=== PATIENT | female | born 1985 | race Caucasian/White ===

== ENCOUNTER 2019-05-30 19:34 | Emergency (ER) | payer OTHER ==
[~2019-05-30] VITALS: Ht 165.1 cm; Wt 104.3 kg
[~2019-05-30 19:34] MED LIST: ADDERALL5 MG PO; AMBIEN10 M1 PO; CIPROFLOXACIN500 MG PO; Copaxone 20M20 MG/ML IM; DARVOCET N 1001 TAB PO; DAYPRO600 M1 PO; FLAGYL500 MG PO; MIRENA52 MG; ROBAXIN750 MG PO
[2019-05-30 19:35] VITALS: BP 120/70
[2019-05-30] MEDS ORDERED: DIFLUCAN150 MG PO (20:00)
[2019-05-30] MEDS ORDERED: VIBRAMYCIN100 MG PO (20:00)
== END 2019-05-30 20:04 | disposition home or self-care (01) ==
LOC: ED 19:34
DX: S91.115A Laceration without foreign body of left lesser toe(s) without damage to nail, initial encounter (principal); L08.9 Local infection of the skin and subcutaneous tissue, unspecified; F17.200 Nicotine dependence, unspecified, uncomplicated; Z88.6 Allergy status to analgesic agent; Z88.8 Allergy status to other drugs, medicaments and biological substances; Z79.899 Other long term (current) drug therapy; X58.XXXA Exposure to other specified factors, initial encounter; Y93.89 Activity, other specified; Y92.828 Other wilderness area as the place of occurrence of the external cause; Y99.8 Other external cause status

== ENCOUNTER 2019-06-02 06:33 | Inpatient (IN) | payer OTHER ==
[2019-06-02] VITALS (10 sets, daily range): BP systolic 104–121; BP diastolic 61–83
[~2019-06-02] VITALS: Ht 165.1 cm; Wt 109.6 kg
[~2019-06-02 06:33] MED LIST changes: +DIFLUCAN150 MG PO; +VIBRAMYCIN100 MG PO
[2019-06-02] MEDS ORDERED: TECFIDERA240 M2 PO (06:53)
--- NOTE | 2019-06-02 07:02 | NUR ---
NOTIIFED DR FLETCHER OF REQUEST FOR PAIN MEDICATION.
[2019-06-02 07:03] LABS: BASO % 0.4 % (0.0-1.0); EOS # 0.1 10*3/uL (0.0-0.4); HEMATOCRIT 42.9 % (37.0-47.0); HEMOGLOBIN 14.3 g/dl (12.0-16.0); LYMPH # 1.4 10*3/uL (1.3-4.4); LYMPH % 19.4 % (27.0-41.0); MEAN CELL VOLUME 94.9 fl (81.0-99.0); MEAN CORPUSCULAR HGB 31.6 pg (27.0-31.0); MEAN CORPUSCULAR HGB CONC 33.3 g/dl (33.0-37.0); MEAN PLATELET VOLUME 10.6 fl (9.6-12.3); MONO # 0.5 10*3/uL (0.1-1.0); MONO % 7.7 % (3.0-9.0); NEUT # 4.9 10*3/uL (2.3-7.9); NEUT % 69.9 % (47.0-73.0); PLATELET COUNT AUTOMATED 277 10*3/uL (130-400); RED BLOOD COUNT 4.52 10*6/uL (4.10-5.10); RED CELL DISTRI WIDTH 13.1 % (0-14.5)
--- NOTE | 2019-06-02 07:05 | NUR ---
report from Nadiya ENRIQUEZ, assumed care of pt, pt resting quietly in bed, call newman in reach.
--- NOTE | 2019-06-02 07:05 | NUR ---
NURSE TO NURSE TO CHELA.
[2019-06-02 07:20] LABS: ALKALINE PHOSPHATASE 75 U/L (45-117); BUN 10 mg/dl (7-24); CHLORIDE 107 mmol/L (98-107); CREATININE 0.68 mg/dL (0.55-1.02); SGOT/AST 12 IU/L (3-35); SGPT/ALT 23 U/L (12-78); SODIUM 138 mmol/L (136-145); TOTAL PROTEIN 7.1 gm/dL (6.4-8.2)
--- NOTE | 2019-06-02 07:24 | NUR ---
went in to room to medicate pt for pain, pt states" I have been taking ibuprofen and Vicodin and it hasn't been doing anything." Will make MD aware.
[2019-06-02 07:32] LABS: ALBUMIN 3.6 gm/dl (3.1-4.5)
--- NOTE | 2019-06-02 08:26 | NUR ---
PT MEDICATED FOR FOOT PAIN ORDERED, SEE EMAR. CALL PARKER IN REACH, WILL CONTINUE TO MONITOR PT
--- NOTE | 2019-06-02 10:08 | NUR ---
A 33, admitted to 4E, under the services of MARGARITA Kimble DO with a diagnosis of INFECTED LACERATION FAILURE OF OUTPATIENT TREATMENT. Chief complaint is PAIN, CELLULITIS. Patient arrived via wheel chair from ER. Monitor applied. Initial assessment completed. Vital signs taken and recorded. MARGARITA KIMBLE DO notified of admission to the unit. Orders received. See assessment for past medical history, medications and allergies. Patient and/or family oriented to unit. [facility] visitation policy reviewed. Clothing/patient valuable form completed. SANJEEV AU
[2019-06-02] MEDS ORDERED: VITAMIN D31000 UNI1 PO (11:29)
[2019-06-02] MEDS ORDERED: TYLENOL PM EX-1 EACH PO (11:32)
--- NOTE | 2019-06-02 12:58 | NUR ---
CALL PLACED TO DR. MONK, REQUESTED MEDICATION FOR PAIN, ADVISED THAT PATIENT REPORTED THE NORCO AND MOTRIN GIVEN IN ED WAS INEFFECTIVE.
--- NOTE | 2019-06-02 19:30 | NUR ---
PT RETURNED FROM OR AT THIS TIME. NO C/O VOICED AT PRESENT. CALL LIGHT IN REACH. AT BEDSIDE.
[2019-06-03] VITALS: BP 102/50
--- NOTE | 2019-06-03 00:18 | NUR ---
PATIENT COMPLAINS OF LEFT FOOT PAIN 04/09. MEDICATED PER ORDER. WILL CONTINUE TO MONITOR FOR RELIF. RESTING IN BED. CALL LIGHT WITHIN REACH.
--- NOTE | 2019-06-03 02:10 | NUR ---
24 HR chart check completed.
--- NOTE | 2019-06-03 05:30 | NUR ---
PATIENT COMPLAINS OF 8/10 FOOT PAIN. MEDICATED PER ORDER. VERBALIZED RELIEF. VOICES NO OTHER CONCERNS AT THIS TIME. RESTING IN BED. CALL LIGHT WITHIN REACH.
--- NOTE | 2019-06-03 05:57 | NUR ---
Patient resting quietly with no c/o discomfort. Respirations easy and regular. Vital signs stable. No overt distress. HISSOM,OSBALDO
--- NOTE | 2019-06-03 06:00 | NUR ---
WOUND CARE NURSE ROUNDED TO SEE PATIENT
--- NOTE | 2019-06-03 06:06 | NUR ---
RAVINDER BARRIGA [id number] Please refer to the physician's history and physical for past medical history, comorbid conditions, and allergies. Diagnosis: INFECTED LACERATION FAILURE OF OUTPATIENT TREATMEN Lucien Score: 22,LOW OR NO RISK WOUND DESCRIPTIONS: Wound Number: 1 post op dressing intact to left foot. No strike through drainage noted at time of assessment. She stated she had surgery with Dr. Bloom yesterday and she stated that she will follow up with Dr. Bloom upon discharge and is requesting we make the appointment for her. Surface the patient is resting on: Isoflex SKIN PREVENTION RECOMMENDATION: 1. Pressure redistribution support surface as appropriate 2. Elevate heels 3. Remove boots/TEDS every shift and reapply 4. Head of bed 30 degrees as tolerated 5. Assess nutrition and hydration 6. Manage moisture 7. Avoid the use of containment devices while in bed 8. Use absorptive products on surfaces limit layers of linens on bed 9. Turn and reposition every 1-2 hours in bed and every 1 hour in chair as tolerated 10. Weight shifts every 15 minutes while up in chair 11. Offloading with pillows or device to keep heels elevated off bed 12. Monitor skin at least every shift 13. Inspect under medical devices twice a day WOUND TREATMENT RECOMMENDATIONS: Await post op dressing order from podiatry since they performed the surgery.
[2019-06-03 06:47] LABS: BASO % 0.5 % (0.0-1.0); EOS # 0.2 10*3/uL (0.0-0.4); EOS % 2.4 % (1.0-4.0); HEMATOCRIT 39.7 % (37.0-47.0); HEMOGLOBIN 13.1 g/dl (12.0-16.0); LYMPH # 1.3 10*3/uL (1.3-4.4); MEAN CELL VOLUME 96.4 fl (81.0-99.0); MEAN CORPUSCULAR HGB 31.8 pg (27.0-31.0); MEAN PLATELET VOLUME 10.9 fl (9.6-12.3); MONO # 0.6 10*3/uL (0.1-1.0); MONO % 7.8 % (3.0-9.0); NEUT # 5.3 10*3/uL (2.3-7.9); NEUT % 70.8 % (47.0-73.0); PLATELET COUNT AUTOMATED 259 10*3/uL (130-400); RED BLOOD COUNT 4.12 10*6/uL (4.10-5.10); RED CELL DISTRI WIDTH 13.2 % (0-14.5); WHITE BLOOD COUNT 7.5 10*3/uL (4.8-10.8)
[2019-06-03 07:02] LABS: ALKALINE PHOSPHATASE 61 U/L (45-117); BUN 11 mg/dl (7-24); CHLORIDE 111 mmol/L (98-107); CHOLESTEROL 141 mg/dL (<200); CREATININE 0.73 mg/dL (0.55-1.02); HDL CHOLESTEROL 41 mg/dl (40-60); LDL CHOLESTEROL 87 mg/dL (9-159); PHOSPHOROUS 3.5 mg/dL (2.5-4.9); POTASSIUM 4.5 mmol/L (3.5-5.1); SGOT/AST 7 IU/L (3-35); SGPT/ALT 18 U/L (12-78); SODIUM 140 mmol/L (136-145); TOTAL PROTEIN 6.2 gm/dL (6.4-8.2); TRIGLYCERIDES 66 mg/dl (<150); VLDL CHOLESTEROL 13 mg/dL (6-40)
[2019-06-03 07:33] LABS: INTERNATIONAL NORM RATIO 0.9 (2.0-3.5)
--- NOTE | 2019-06-03 07:55 | NUR ---
Notified Dr. Hsu regarding dressing change orders he stated he will fix it when he gets here.
[2019-06-03 08:14] LABS: VITAMIN D, 25-HYDROXY 67.6 ng/mL (30-100)
--- NOTE | 2019-06-03 08:30 | NUR ---
Ireton given per patient request for c/o pain in LLE rated 6/10. Will monitor.
--- NOTE | 2019-06-03 09:10 | NUR ---
Mary effective. Patient satisfied.
--- NOTE | 2019-06-03 09:39 | NUR ---
Button Reclaimer in to talk to patient. Patient states lives at HOME with . There are FEW steps in the home. Physician: MARYANN NORTON Pharmacy: [facility] Home health services: NONE Patient's level of ADLs: INDEPENDENT Patient has working utilities: YES DME: NONE Follow-up physician's appointment after d/c: WILL BE MADE BY HOSPITALIST NURSE DIRECTOR ON DISCHARG Does patient want to access PORTAL?: NO Discharge plan PT LIVES AT HOME WITH HER AND IS INDEPENDENT IN HER CARE. DENIES SHE WILL HAVE ANY NEEDS ON DISCHARGE. WILL CONTINUE TO FOLLOW. SHE WILL HAVE A RIDE HOME ON DISCHARGE. . PRASHANT CARDONA
--- NOTE | 2019-06-03 10:12 | NUR ---
Morphine given per patient request for pain associated with dressing change. Patient is displaying obvious signs of distress. Will monitor.
--- NOTE | 2019-06-03 10:43 | NUR ---
Nutritional Support Services Note: Dx of infected laceration failure of outpatient tx, cellulitis, anemia, MS. Appetite is good for meals, pt is eating 100% of regular diet. Encouraged increased calories and protein to promote healing. No other nutrition intervention needed at this time. Ht.5'5 [id number].242#. IBW [phone]. Will follow as needed. Rmaa Bonilla Rdn Ld
[2019-06-03 10:45] VITALS: BP 92/60
--- NOTE | 2019-06-03 11:00 | NUR ---
Morphine was not effectivey during wound packing, but is more comfortable at present time.
--- NOTE | 2019-06-03 11:50 | NUR ---
Per patient request contacted Dr. Braden for permission to remove machine rope maker to shower. Also informed physician that patient has c/o being "itchey all over." See new orders.
--- NOTE | 2019-06-03 12:36 | NUR ---
PHYSICAL THERAPY Attempted physical therapy evaluation. Pt unavailable due to being out of room for procedure. Thank you Abi Dumont, PT, DPT
[2019-06-03 16:00] VITALS: BP 109/64
--- NOTE | 2019-06-03 16:15 | NUR ---
Dilaudid given per patient comfort during dressing change.
--- NOTE | 2019-06-03 16:30 | NUR ---
Dilaudid effective. Patient tolerated wound packing and application of wound vac well. No signs of distress, patient satisfied.
--- NOTE | 2019-06-03 18:19 | NUR ---
Per patient request adjusted the time of her med from home to Q12. See new orders.
[2019-06-03 18:25] LABS: BILIRUBIN NEGATIVE (NEGATIVE); BLOOD 1+ (NEGATIVE); CLARITY CLEAR (CLEAR); COLOR YELLOW (YELLOW); GLUCOSE NEGATIVE (NEGATIVE); KETONE NEGATIVE (NEGATIVE); LEUKO ESTERASE 1+ (NEGATIVE); NITRITE NEGATIVE (NEGATIVE); UROBILINOGEN 0.2 E.U./dl (0.2-1.0)
[2019-06-03 18:35] LABS: WBC 0-2 wbc/hpf (0-5)
[2019-06-03 18:36] LABS: BACTERIA 1+
--- NOTE | 2019-06-03 19:20 | NUR ---
ARRIVED ON SHIFT, INTRODUCED TO PATIENT, BEDSIDE REPORT RECEIVED, NO NEEDS VOICED AT THIS TIME, WHITE BOARD UPDATED.
[2019-06-03 20:00] VITALS: BP 102/65
--- NOTE | 2019-06-03 22:27 | NUR ---
MEDICATED WITH NORCO FOR LEFT FOOT PAIN 5/10, REPORTS THROBBING.
--- NOTE | 2019-06-03 23:49 | NUR ---
24 HR chart check completed.
[2019-06-04] VITALS: BP 109/56
--- NOTE | 2019-06-04 06:00 | NUR ---
Patient sleeping. Respirations relaxed and easy. Siderails up x 2 with [place] on, bed in low position, and call light within reach. on. SANJEEV AU
[2019-06-04 07:20] LABS: BASO % 0.6 % (0.0-1.0); EOS # 0.2 10*3/uL (0.0-0.4); EOS % 2.1 % (1.0-4.0); HEMATOCRIT 40.8 % (37.0-47.0); HEMOGLOBIN 13.1 g/dl (12.0-16.0); LYMPH # 1.6 10*3/uL (1.3-4.4); LYMPH % 21.9 % (27.0-41.0); MEAN CELL VOLUME 95.6 fl (81.0-99.0); MEAN CORPUSCULAR HGB 30.7 pg (27.0-31.0); MEAN CORPUSCULAR HGB CONC 32.1 g/dl (33.0-37.0); MEAN PLATELET VOLUME 10.4 fl (9.6-12.3); MONO # 0.6 10*3/uL (0.1-1.0); MONO % 7.9 % (3.0-9.0); NEUT # 4.9 10*3/uL (2.3-7.9); NEUT % 67.2 % (47.0-73.0); PLATELET COUNT AUTOMATED 267 10*3/uL (130-400); RED BLOOD COUNT 4.27 10*6/uL (4.10-5.10); WHITE BLOOD COUNT 7.3 10*3/uL (4.8-10.8)
[2019-06-04 07:31] LABS: BUN 10 mg/dl (7-24); CHLORIDE 106 mmol/L (98-107); CREATININE 0.79 mg/dL (0.55-1.02); POTASSIUM 4.8 mmol/L (3.5-5.1); SODIUM 138 mmol/L (136-145)
--- NOTE | 2019-06-04 10:00 | NUR ---
PHYSICAL THERAPY PATIENT SEEN TODAY ON LEVEL 4 FOR ATTEMPTED EVAL HOWEVER SHE STATES SHE IS (I) WITH TRANSFERS , BED MOBILITY AND DOES NOT NEED PT SERVICES. SHE HAS ORDERS FOR WBAT ON THE LLE BUT SHE IS INSISTENT DURING ASSESSMENT THAT HER DR TOLD HER SHE IS TO PUT NO WEIGHT ON THE LLE. SHE IS REQUESTING NO PT SERVICES BUT STATES SHE WOULD LIKE TO HAVE A KNEE SCOOTER FOR D/C SHE FEELS IT WOULD BE EASIER FOR HER TO USE THAN THE WALKER. ATTEMPTED TO CONFIRM WB STATUS WITH NURSE HOWEVER SHE WAS NOT CLEAR TO ANY RESTRICTIONS EITHER. CASE MANAGEMENT MADE AWARE OF DESIRE FOR KNEE SCOOTER VIA EMAIL. THANK YOU FOR REFERRAL. WOULD ADVISE AT LEAST HH ASSESSMENT ON D/C TO ENSURE SAFETY AT HOME. THANKS LUIS ALEXANDRA PT
--- NOTE | 2019-06-04 10:42 | NUR ---
PT MEDICATED WITH PRN ZOFRAN FOR C/O NAUSEA. WILL MONITOR.
[2019-06-04 12:00] VITALS: BP 109/59
--- NOTE | 2019-06-04 13:35 | NUR ---
PRN ZOFRAN EFFECTIVE PER PT.
[2019-06-04 14:06] LABS: ACID FAST SPEC PROCESSING Tissue Grinding (.)
[2019-06-04 16:00] VITALS: BP 113/63
--- NOTE | 2019-06-04 16:44 | NUR ---
PT RESTING IN BED. DENIES ANY NEEDS AT THIS TIME. WILL CONTINUE TO MONITOR.
--- NOTE | 2019-06-04 19:20 | NUR ---
ARRIVED ON SHIFT, PATIENTS SPOUSE AND SON AND BEDSIDE, DECLINES BEDSIDE REPORT, REPORT RECEIVED, WHITE BOARD UPDATED, NO NEEDS VOICED AT THIS TIME.
[2019-06-04 20:00] VITALS: BP 115/67
--- NOTE | 2019-06-04 20:27 | NUR ---
24 HR chart check completed.
[2019-06-05] VITALS: BP 114/61
--- NOTE | 2019-06-05 01:21 | NUR ---
C/O LEFT FOOT PAIN 03/09 MEDICATED WITH NORCO ORDERED.
--- NOTE | 2019-06-05 02:19 | NUR ---
GOOD EFFECT FROM NORCO GIVEN X 1 HOUR AGO EVIDENCED BY PATIENT RESTING QUIETLY WITH EYES CLOSED, RESPIRATIONS EASY AND NON LABORED, FREE FROM NON-VERBAL S/S OF PAIN.
--- NOTE | 2019-06-05 03:00 | NUR ---
Patient sleeping. Respirations relaxed and easy. Siderails up x 2. Wheellocks on.bed in low position, call light within reach. SANJEEV AU
[2019-06-05 08:00] VITALS: BP 118/76
--- NOTE | 2019-06-05 11:00 | NUR ---
PT REQUESTED AND RECIEVED PRN DAR FOR FOOT PAIN. WILL MONITOR FOR EFFECTIVENESS.
[2019-06-05 12:00] VITALS: BP 120/62
--- NOTE | 2019-06-05 12:30 | NUR ---
PT STATES RELIEF FROM PREVIOUS NORCO. NO S/S OF DISTRESS OR SOB. RESPIRATIONS EASY AND REGULAR. BED IN LOWEST LOCKED POSITION. CALL LIGHT WITHIN REACH. WILL CONTINUE TO MONITOR.
[2019-06-05 16:00] VITALS: BP 103/58
[2019-06-05 20:00] VITALS: BP 108/63
--- NOTE | 2019-06-05 22:08 | NUR ---
PATIENT REQUESTING PAIN MEDICATION FOR LEFT FOOT PAIN RATED 7/10 ON 0/10 SCALE.NORCO ADMINISTERED PRESCRIBED. WILL MONITOR FOR EFFECTIVENESS.
--- NOTE | 2019-06-05 23:08 | NUR ---
PATIENT RESTING WITH EYES CLOSED. RESPIRATIONS EASY AND UNLABORED, NO DISTRESS NOTED. CALL LIGHT WITHIN REACH. WILL MONITOR.
[2019-06-06] VITALS: BP 108/65
--- NOTE | 2019-06-06 06:55 | NUR ---
DR GRANADOS CALLED AND MADE AWARE THAT PATIENT HAS NO WOUND VAC ORDER SINCE WOUND VAC PLACED ON 06/03. WAITING FOR NEW ORDER.
--- NOTE | 2019-06-06 07:31 | NUR ---
Spoke with Dr. Rick regarding wound vac orders stated he will clarify when he gets here.
[2019-06-06 08:00] VITALS: BP 103/63
[2019-06-06 12:00] VITALS: BP 105/64
--- NOTE | 2019-06-06 13:00 | NUR ---
PT STATES SHE WILL GO HOME WITH NO NEEDS ON DISCHARGE. WILL CONTINUE TO FOLLOW.
[2019-06-06] MEDS ORDERED: PANTOPRAZOLE SO40 MG PO (14:44)
[2019-06-06] MEDS ORDERED: DOXYCYCLINE MO100 M1 PO (14:44)
[2019-06-06] MEDS ORDERED: NORCO 5-325 TA1 EACH PO (15:37)
--- NOTE | 2019-06-06 15:55 | NUR ---
Discharge instructions reviewed with patient/family. Patient receptive and verbalizes understanding. Follow-up care arranged. Written instructions given to patient/family. Patient ambulated from unit with all personal belongings accounted for. Patient was educated on new prescriptions and follow up appointments. Per patient she already scheduled an appointment with podiatry for 06-07-19. LAVINIA GTZ
[2019-07-15 10:09] LABS: ACID FAST CULTURE Negative (.)
== END 2019-06-06 15:55 | disposition home or self-care (01) | DRG 603 ==
LOC: ED 06:33 → 4E 09:05 → EDHOLD 09:05 → 4E 09:11
PROVIDERS: Emergency Medicine; Internal Medicine; Podiatrist; Student in an Organized Health Care Education/Training Program; ADMIT Internal Medicine
PROC: 0Y9N0ZZ Drainage of Left Foot, Open Approach (ICD-10-PCS; principal; 2019-06-02)
DX: L03.116 Cellulitis of left lower limb (principal); L02.612 Cutaneous abscess of left foot; E44.0 Moderate protein-calorie malnutrition; Z68.41 Body mass index [BMI] 40.0-44.9, adult; E87.8 Other disorders of electrolyte and fluid balance, not elsewhere classified; E66.01 Morbid (severe) obesity due to excess calories; G35 Multiple sclerosis; F17.210 Nicotine dependence, cigarettes, uncomplicated; B95.61 Methicillin susceptible Staphylococcus aureus infection as the cause of diseases classified elsewhere; S91.119A Laceration without foreign body of unspecified toe without damage to nail, initial encounter; X58.XXXA Exposure to other specified factors, initial encounter; Y93.89 Activity, other specified; Y92.828 Other wilderness area as the place of occurrence of the external cause; Z88.8 Allergy status to other drugs, medicaments and biological substances; Z88.6 Allergy status to analgesic agent; Y99.8 Other external cause status; Z80.8 Family history of malignant neoplasm of other organs or systems; Z79.899 Other long term (current) drug therapy

== ENCOUNTER 2020-09-09 01:23 | Emergency (ER) | payer SELFPAY ==
[~2020-09-09] VITALS: Ht 165.1 cm; Wt 81.6 kg
[~2020-09-09 01:23] MED LIST changes: +DOXYCYCLINE MO100 M1 PO; +NORCO 5-325 TA1 EACH PO; +PANTOPRAZOLE SO40 MG PO; +TECFIDERA240 M2 PO; +TYLENOL PM EX-1 EACH PO; +VITAMIN D31000 UNI1 PO
[2020-09-09 01:55] LABS: BASO % 0.5 % (0.0-1.0); EOS # 0.1 10*3/uL (0.0-0.4); EOS % 1.9 % (1.0-4.0); HEMATOCRIT 42.1 % (37.0-47.0); LYMPH # 1.1 10*3/uL (1.3-4.4); LYMPH % 17.6 % (27.0-41.0); MEAN CELL VOLUME 95.2 fl (81.0-99.0); MEAN CORPUSCULAR HGB CONC 32.5 g/dl (33.0-37.0); MONO # 0.4 10*3/uL (0.1-1.0); MONO % 6.8 % (3.0-9.0); NEUT # 4.6 10*3/uL (2.3-7.9); NEUT % 72.9 % (47.0-73.0); PLATELET COUNT AUTOMATED 309 10*3/uL (130-400); RED BLOOD COUNT 4.42 10*6/uL (4.10-5.10); RED CELL DISTRI WIDTH 13.3 % (0-14.5); WHITE BLOOD COUNT 6.3 10*3/uL (4.8-10.8)
[2020-09-09 02:14] LABS: BILIRUBIN Negative (Negative); BLOOD Negative (Negative); CLARITY Clear (Clear); COLOR Yellow (Yellow); GLUCOSE Negative (Negative); KETONE Negative (Negative); LEUKO ESTERASE 3+ (Negative); NITRITE Negative (Negative); PH 5.5 (4.5-8.0); SPECIFIC GRAVITY <= 1.005 (1.001-1.030); UROBILINOGEN 0.2 E.U./dl (0.0-1.0)
[2020-09-09 02:17] LABS: ALBUMIN 3.8 gm/dl (3.1-4.5); ALKALINE PHOSPHATASE 91 U/L (45-117); BUN 5 mg/dl (7-24); CHLORIDE 107 mmol/L (98-107); CREATININE 0.59 mg/dL (0.55-1.02); POTASSIUM 3.9 mmol/L (3.5-5.1); SGOT/AST 10 IU/L (3-35); SGPT/ALT 25 U/L (12-78); SODIUM 141 mmol/L (136-145); TOTAL PROTEIN 7.2 gm/dL (6.4-8.2)
[2020-09-09 02:18] LABS: TROPONIN I < 0.015 ng/ml (<0.045)
[2020-09-09 02:19] LABS: URINE AMPHETAMINES > 1000 (1000ng/ml); URINE BARBITURATES < 200 (200ng/ml); URINE BENZODIAZEPINES < 200 (200ng/ml); URINE CANNABINOIDS (THC) < 50 (50ng/ml); URINE COCAINE < 300 (300ng/ml); URINE METHADONE < 300 (300ng/ml); URINE OPIATES < 300 (300ng/ml)
[2020-09-09 02:20] LABS: URINE PHENCYCLIDINE < 25 (25ng/ml)
[2020-09-09 02:31] LABS: BACTERIA 1+; WBC 16-20 wbc/hpf (0-5)
[2020-09-09 03:30] VITALS: BP 105/75
[2020-09-09] MEDS ORDERED: CIPRO500 MG PO (04:11)
== END 2020-09-09 04:33 | disposition home or self-care (01) ==
LOC: ED 01:23
PROVIDERS: Internal Medicine
DX: U07.1 COVID-19 (principal); D72.810 Lymphocytopenia; N39.0 Urinary tract infection, site not specified; R40.20 Unspecified coma; G35 Multiple sclerosis; F17.200 Nicotine dependence, unspecified, uncomplicated; Z98.84 Bariatric surgery status; Z88.8 Allergy status to other drugs, medicaments and biological substances; Z79.2 Long term (current) use of antibiotics; Z79.899 Other long term (current) drug therapy; Z72.89 Other problems related to lifestyle

== ENCOUNTER 2020-11-02 12:53 | Emergency (ER) | payer OTHER ==
[~2020-11-02] VITALS: Ht 165.1 cm; Wt 77.1 kg
[~2020-11-02 12:53] MED LIST changes: +CIPRO500 MG PO
[2020-11-02 13:00] VITALS: BP 127/79
[2020-11-02 13:42] LABS: BASO % 0.4 % (0.0-1.0); EOS % 0.5 % (1.0-4.0); HEMATOCRIT 42.9 % (37.0-47.0); MEAN CELL VOLUME 95.3 fl (81.0-99.0); MEAN CORPUSCULAR HGB 31.8 pg (27.0-31.0); MEAN CORPUSCULAR HGB CONC 33.3 g/dl (33.0-37.0); MEAN PLATELET VOLUME 10.8 fl (9.6-12.3); MONO # 0.5 10*3/uL (0.1-1.0); NEUT # 5.7 10*3/uL (2.3-7.9); NEUT % 77.8 % (47.0-73.0); PLATELET COUNT AUTOMATED 321 10*3/uL (130-400); RED CELL DISTRI WIDTH 12.6 % (0-14.5); WHITE BLOOD COUNT 7.3 10*3/uL (4.8-10.8)
[2020-11-02 13:56] LABS: ALBUMIN 3.9 gm/dl (3.1-4.5); ALKALINE PHOSPHATASE 88 U/L (45-117); BUN 7 mg/dl (7-24); CHLORIDE 110 mmol/L (98-107); CREATININE 0.61 mg/dL (0.55-1.02); LIPASE 49 U/L (73-393); POTASSIUM 4.1 mmol/L (3.5-5.1); SGOT/AST 9 IU/L (3-35); SGPT/ALT 20 U/L (12-78); SODIUM 141 mmol/L (136-145); TOTAL PROTEIN 6.9 gm/dL (6.4-8.2)
[2020-11-02 13:58] LABS: BILIRUBIN Negative (Negative); BLOOD Negative (Negative); CLARITY Clear (Clear); COLOR Yellow (Yellow); GLUCOSE Negative (Negative); KETONE Negative (Negative); LEUKO ESTERASE 1+ (Negative); NITRITE Negative (Negative); PH 7.5 (4.5-8.0); SPECIFIC GRAVITY <= 1.005 (1.001-1.030); UROBILINOGEN 0.2 E.U./dl (0.0-1.0)
[2020-11-02 14:04] LABS: BACTERIA 1+; RBC 0-2 rbc/hpf (0-2)
[2020-11-02] MEDS ORDERED: COMPAZINE5 M3 PO (15:03)
== END 2020-11-02 15:12 | disposition home or self-care (01) ==
LOC: ED 12:53
PROVIDERS: Physician Assistant
DX: K52.9 Noninfective gastroenteritis and colitis, unspecified (principal); Z88.8 Allergy status to other drugs, medicaments and biological substances; Z79.899 Other long term (current) drug therapy; Z98.890 Other specified postprocedural states

== ENCOUNTER 2021-01-15 20:30 | Emergency (ER) | payer OTHER ==
[~2021-01-15] VITALS: Ht 170.1 cm; Wt 70.3 kg
[2021-01-15 20:30] VITALS: BP 118/76
[~2021-01-15 20:30] MED LIST changes: +COMPAZINE5 M3 PO
[2021-01-15 20:49] LABS: BASO % 0.2 % (0.0-1.0); EOS # 0.1 10*3/uL (0.0-0.4); EOS % 0.6 % (1.0-4.0); HEMATOCRIT 46.3 % (37.0-47.0); LYMPH # 1.3 10*3/uL (1.3-4.4); LYMPH % 13.3 % (27.0-41.0); MEAN CELL VOLUME 92.2 fl (81.0-99.0); MEAN CORPUSCULAR HGB 31.5 pg (27.0-31.0); MEAN CORPUSCULAR HGB CONC 34.1 g/dl (33.0-37.0); MEAN PLATELET VOLUME 10.1 fl (9.6-12.3); MONO # 0.7 10*3/uL (0.1-1.0); MONO % 6.8 % (3.0-9.0); NEUT # 7.7 10*3/uL (2.3-7.9); NEUT % 78.9 % (47.0-73.0); PLATELET COUNT AUTOMATED 338 10*3/uL (130-400); RED BLOOD COUNT 5.02 10*6/uL (4.10-5.10); RED CELL DISTRI WIDTH 12.6 % (0-14.5); WHITE BLOOD COUNT 9.7 10*3/uL (4.8-10.8)
[2021-01-15 21:05] LABS: BILIRUBIN Negative (Negative); BLOOD Negative (Negative); CLARITY Clear (Clear); COLOR Dark Yellow (Yellow); GLUCOSE Negative (Negative); KETONE 2+ (Negative); LEUKO ESTERASE 1+ (Negative); NITRITE Negative (Negative); PH 6.5 (4.5-8.0)
[2021-01-15 21:31] LABS: BACTERIA 1+; EPITHELIAL CELLS 21-30; MUCOUS 1+
[2021-01-15 22:02] LABS: ALBUMIN 3.7 gm/dl (3.1-4.5); ALKALINE PHOSPHATASE 85 U/L (45-117); BUN 10 mg/dl (7-24); CHLORIDE 107 mmol/L (98-107); CREATININE 0.83 mg/dL (0.55-1.02); LIPASE 55 U/L (73-393); SGOT/AST 11 IU/L (3-35); SGPT/ALT 18 U/L (12-78); SODIUM 139 mmol/L (136-145); TOTAL PROTEIN 7.3 gm/dL (6.4-8.2)
[2021-01-15] MEDS ORDERED: CIPRO500 MG PO (22:15)
== END 2021-01-15 22:09 | disposition home or self-care (01) ==
LOC: ED 20:30
PROVIDERS: Internal Medicine
DX: N39.0 Urinary tract infection, site not specified (principal); Z79.899 Other long term (current) drug therapy; Z88.8 Allergy status to other drugs, medicaments and biological substances; Z98.890 Other specified postprocedural states

== ENCOUNTER 2021-06-20 15:50 | Emergency (ER) | payer OTHER ==
[~2021-06-20] VITALS: Ht 165.1 cm; Wt 65.8 kg
[2021-06-20 15:55] VITALS: BP 126/77
== END 2021-06-20 20:09 | disposition home or self-care (01) ==
LOC: ED 15:50
DX: G43.909 Migraine, unspecified, not intractable, without status migrainosus (principal); F17.200 Nicotine dependence, unspecified, uncomplicated; Z88.6 Allergy status to analgesic agent; Z88.8 Allergy status to other drugs, medicaments and biological substances; Z79.899 Other long term (current) drug therapy

== ENCOUNTER → 2023-03-12 | Outpatient (CLI) | payer OTHER ==
[2023-03-12 17:42] LABS: BASO % 0.5 % (0.0-1.0); EOS # 0.1 10*3/uL (0.0-0.4); EOS % 1.1 % (1.0-4.0); HEMATOCRIT 41.6 % (37.0-47.0); LYMPH # 1.2 10*3/uL (1.3-4.4); LYMPH % 15.6 % (27.0-41.0); MEAN CORPUSCULAR HGB 33.1 pg (27.0-31.0); MEAN CORPUSCULAR HGB CONC 34.1 g/dl (33.0-37.0); MEAN PLATELET VOLUME 9.6 fl (9.6-12.3); MONO # 0.6 10*3/uL (0.1-1.0); MONO % 7.6 % (3.0-9.0); NEUT # 5.5 10*3/uL (2.3-7.9); NEUT % 74.8 % (47.0-73.0); PLATELET COUNT AUTOMATED 316 10*3/uL (130-400); RED BLOOD COUNT 4.29 10*6/uL (4.10-5.10); RED CELL DISTRI WIDTH 12.5 % (0-14.5); WHITE BLOOD COUNT 7.4 10*3/uL (4.8-10.8)
[2023-03-12 18:16] LABS: ALKALINE PHOSPHATASE 62 U/L (46-116); SGPT/ALT 13 U/L (10-49); TOTAL PROTEIN 7.3 gm/dL (6.0-8.0)
== END | disposition home or self-care (01) ==
LOC: LAB 17:12
PROVIDERS: ATTEND Specialist
DX: G35 Multiple sclerosis (principal); Z79.60 Long term (current) use of unspecified immunomodulators and immunosuppressants; Z79.899 Other long term (current) drug therapy

== ENCOUNTER 2023-07-11 15:37 | Emergency (ER) | payer OTHER ==
[~2023-07-11] VITALS: Ht 165.1 cm; Wt 74.8 kg
[2023-07-11 15:47] VITALS: BP 136/88
[2023-07-11 16:29] LABS: BASO % 0.5 % (0.0-1.0); EOS # 0.1 10*3/uL (0.0-0.4); EOS % 0.6 % (1.0-4.0); HEMATOCRIT 39.7 % (37.0-47.0); LYMPH # 0.7 10*3/uL (1.3-4.4); LYMPH % 8.4 % (27.0-41.0); MEAN CELL VOLUME 93.9 fl (81.0-99.0); MEAN CORPUSCULAR HGB 32.2 pg (27.0-31.0); MEAN CORPUSCULAR HGB CONC 34.3 g/dl (33.0-37.0); MEAN PLATELET VOLUME 9.7 fl (9.6-12.3); MONO # 0.6 10*3/uL (0.1-1.0); MONO % 7.3 % (3.0-9.0); NEUT # 6.8 10*3/uL (2.3-7.9); PLATELET COUNT AUTOMATED 302 10*3/uL (130-400); RED BLOOD COUNT 4.23 10*6/uL (4.10-5.10); RED CELL DISTRI WIDTH 12.3 % (0-14.5); WHITE BLOOD COUNT 8.2 10*3/uL (4.8-10.8)
[2023-07-11 16:50] LABS: ALKALINE PHOSPHATASE 63 U/L (46-116); BUN 10 mg/dl (9-23); CHLORIDE 106 mmol/L (98-107); LIPASE 40 U/L (12-53); POTASSIUM 3.6 mmol/L (3.4-5.1); SGPT/ALT 35 U/L (5-49); TOTAL PROTEIN 6.7 gm/dL (6.0-8.0)
[2023-07-11 18:05] LABS: BILIRUBIN Negative (Negative); BLOOD Negative (Negative); CLARITY Clear (Clear); COLOR Yellow (Yellow); GLUCOSE Negative (Negative); KETONE 1+ (Negative); LEUKO ESTERASE Negative (Negative); NITRITE Negative (Negative); SPECIFIC GRAVITY >= 1.030 (1.001-1.030); UROBILINOGEN 0.2 E.U./dl (0.0-1.0)
[2023-07-11 18:33] LABS: WBC 0-2 wbc/hpf (0-5)
[2023-07-11] MEDS ORDERED: ONDANSETRON4 MG SL (20:16)
== END 2023-07-11 20:35 | disposition home or self-care (01) ==
LOC: ED 15:37
PROVIDERS: Family Medicine
DX: K52.9 Noninfective gastroenteritis and colitis, unspecified (principal); R11.2 Nausea with vomiting, unspecified; D64.9 Anemia, unspecified; Z88.8 Allergy status to other drugs, medicaments and biological substances; Z98.890 Other specified postprocedural states; F17.200 Nicotine dependence, unspecified, uncomplicated

== ENCOUNTER → 2023-10-05 | Outpatient (CLI) | payer OTHER ==
[~2023-10-05] MED LIST changes: +ONDANSETRON4 MG SL
[2023-10-05 15:00] LABS: BASO % 0.7 % (0.0-1.0); EOS # 0.1 10*3/uL (0.0-0.4); EOS % 1.2 % (1.0-4.0); HEMATOCRIT 41.5 % (37.0-47.0); LYMPH # 0.8 10*3/uL (1.3-4.4); LYMPH % 12.8 % (27.0-41.0); MEAN CORPUSCULAR HGB 30.7 pg (27.0-31.0); MEAN CORPUSCULAR HGB CONC 32.3 g/dl (33.0-37.0); MEAN PLATELET VOLUME 9.7 fl (9.6-12.3); MONO # 0.5 10*3/uL (0.1-1.0); NEUT # 4.5 10*3/uL (2.3-7.9); PLATELET COUNT AUTOMATED 313 10*3/uL (130-400); RED BLOOD COUNT 4.37 10*6/uL (4.10-5.10); RED CELL DISTRI WIDTH 13.1 % (0-14.5); WHITE BLOOD COUNT 5.9 10*3/uL (4.8-10.8)
[2023-10-05 15:30] LABS: ALKALINE PHOSPHATASE 67 U/L (46-116); BUN 7 mg/dl (9-23); CHLORIDE 106 mmol/L (98-107); POTASSIUM 3.9 mmol/L (3.4-5.1); SGPT/ALT 18 U/L (5-49); THYROXINE (T4) TOTAL 7.6 ug/dl (4.5-10.9); TOTAL PROTEIN 7.2 gm/dL (6.0-8.0)
[2023-10-05 15:31] LABS: VITAMIN D, 25-HYDROXY 37.4 ng/mL (30-100)
[2023-10-06 06:09] LABS: VARICELLA-ZOSTER IGG 1253 index (Immune >165)
[2023-10-06 08:09] LABS: HEPATITIS B SURFACE AB Non Reactive (.); HEPATITIS B SURFACE AG Negative (Negative); IMMUNOGLOBULIN G, QNT 885 mg/dL (586-1602)
[2023-10-07 22:06] LABS: % CD19 12 % (6-23); % CD3 74 % (62-87); % CD4 62 % (32-64); % CD45RA 66 % (28-71); % CD45RO 34 % (28-72); % CD8 11 % (15-46); ABSOLUTE CD19 91 cells/uL (91-610); ABSOLUTE CD3 583 cells/uL (570-2400); ABSOLUTE CD4 486 cells/uL (430-1800); ABSOLUTE CD45RA 342 cells/uL (150-870); ABSOLUTE CD45RO 179 cells/uL (190-1050); ABSOLUTE CD8 89 cells/uL (210-1200); ABSOLUTE NATURAL KILLER CELLS 101 cells/uL (78-470); CD4:CD8 RATIO 5.64 ratio (0.80-3.90); NATURAL KILLER CELLS % 13 % (4-26)
== END | disposition home or self-care (01) ==
LOC: LAB 14:11
PROVIDERS: ATTEND Psychiatry & Neurology Neurology with Special Qualifications in Child Neurology
DX: Z11.59 Encounter for screening for other viral diseases (principal); Z11.1 Encounter for screening for respiratory tuberculosis; E53.8 Deficiency of other specified B group vitamins; Z91.89 Other specified personal risk factors, not elsewhere classified; R53.83 Other fatigue; E55.9 Vitamin D deficiency, unspecified

== ENCOUNTER 2023-12-16 18:53 | Emergency (ER) | payer OTHER ==
[~2023-12-16] VITALS: Ht 165.1 cm; Wt 74.8 kg
[2023-12-16 19:03] VITALS: BP 122/80
[2023-12-16] MEDS ORDERED: ACETAMINOPHEN 325 MG TAB PO ONE (19:20)
== END 2023-12-16 20:26 | disposition home or self-care (01) ==
LOC: ED 18:53
DX: S90.31XA Contusion of right foot, initial encounter (principal); S60.222A Contusion of left hand, initial encounter; D64.9 Anemia, unspecified; Z88.8 Allergy status to other drugs, medicaments and biological substances; Z98.890 Other specified postprocedural states; F17.200 Nicotine dependence, unspecified, uncomplicated; X50.1XXA Overexertion from prolonged static or awkward postures, initial encounter; Y93.89 Activity, other specified; Y92.89 Other specified places as the place of occurrence of the external cause; Y99.8 Other external cause status

== ENCOUNTER → 2024-07-19 | Outpatient (CLI) | payer OTHER ==
[2024-07-19 11:19] LABS: BASO % 0.6 % (0.0-1.0); EOS # 0.1 10*3/uL (0.0-0.4); HEMATOCRIT 38.7 % (37.0-47.0); MEAN CELL VOLUME 90.6 fl (81.0-99.0); MEAN CORPUSCULAR HGB 29.5 pg (27.0-31.0); MEAN CORPUSCULAR HGB CONC 32.6 g/dl (33.0-37.0); MONO # 0.7 10*3/uL (0.1-1.0); MONO % 10.9 % (3.0-9.0); NEUT % 73.7 % (47.0-73.0); PLATELET COUNT AUTOMATED 302 10*3/uL (130-400); RED BLOOD COUNT 4.27 10*6/uL (4.10-5.10); RED CELL DISTRI WIDTH 14.6 % (0-14.5); WHITE BLOOD COUNT 6.8 10*3/uL (4.8-10.8)
[2024-07-19 11:44] LABS: ALKALINE PHOSPHATASE 57 U/L (46-116); BUN 7 mg/dl (9-23); CHLORIDE 105 mmol/L (98-107); POTASSIUM 3.7 mmol/L (3.4-5.1); SGPT/ALT 17 U/L (5-49); TOTAL PROTEIN 7.1 gm/dL (6.0-8.0)
== END | disposition home or self-care (01) ==
LOC: LAB 09:32
PROVIDERS: ATTEND Specialist
DX: G35 Multiple sclerosis (principal); D84.821 Immunodeficiency due to drugs; Z79.60 Long term (current) use of unspecified immunomodulators and immunosuppressants; Z79.899 Other long term (current) drug therapy

== ENCOUNTER 2024-10-18 02:12 | Emergency (ER) | payer OTHER ==
[~2024-10-18] VITALS: Ht 165.1 cm; Wt 81.6 kg
[2024-10-18] MEDS ORDERED: Dexamethasone Sodium Phospha 20 MG/5 ML VIAL IV ONE (02:25)
[2024-10-18] MEDS ORDERED: EPINEPHrine Hydrochloride 1 MG/ML AMP IM ONE (02:25)
[2024-10-18] MEDS ORDERED: FAMOTIDINE 50 ML IV ONE (02:25)
[2024-10-18] MEDS ORDERED: diphenhydrAMINE hydrochloride 50 MG/ML VIAL IV ONE (02:25)
[2024-10-18] MEDS ORDERED: Midazolam Hydrochloride 2 MG/2 ML VIAL IV ONE (02:30)
[2024-10-18 02:34] VITALS: BP 138/79
[2024-10-18 02:40] LABS: BASO % 0.3 % (0.0-1.0); EOS # 0.1 10*3/uL (0.0-0.4); HEMATOCRIT 37.7 % (37.0-47.0); MEAN CELL VOLUME 86.9 fl (81.0-99.0); MEAN CORPUSCULAR HGB CONC 33.4 g/dl (33.0-37.0); MEAN PLATELET VOLUME 9.7 fl (9.6-12.3); MONO # 0.7 10*3/uL (0.1-1.0); MONO % 7.2 % (3.0-9.0); NEUT # 7.8 10*3/uL (2.3-7.9); NEUT % 78.2 % (47.0-73.0); PLATELET COUNT AUTOMATED 409 10*3/uL (130-400); RED BLOOD COUNT 4.34 10*6/uL (4.10-5.10); RED CELL DISTRI WIDTH 13.7 % (0-14.5); WHITE BLOOD COUNT 9.9 10*3/uL (4.8-10.8)
[2024-10-18 02:59] LABS: BUN 5 mg/dl (9-23); CHLORIDE 104 mmol/L (98-107); POTASSIUM 2.7 mmol/L (3.4-5.1)
[2024-10-18] MEDS ORDERED: POTASSIUM CHLORIDE 20 MEQ TAB PO ONE ×2 (03:05)
[2024-10-18] MEDS ORDERED: EPIPEN 2-P0.3 MG/0.3 IJ (03:31)
== END 2024-10-18 05:15 | disposition home or self-care (01) ==
LOC: ED 02:12
PROVIDERS: Internal Medicine
DX: T78.2XXA Anaphylactic shock, unspecified, initial encounter (principal); L50.9 Urticaria, unspecified; D64.9 Anemia, unspecified; F17.200 Nicotine dependence, unspecified, uncomplicated; Z88.8 Allergy status to other drugs, medicaments and biological substances; Z98.890 Other specified postprocedural states

== ENCOUNTER 2024-10-19 03:59 | Emergency (ER) | payer OTHER ==
[~2024-10-19] VITALS: Ht 167.6 cm; Wt 77.1 kg
[~2024-10-19 03:59] MED LIST changes: +EPIPEN 2-P0.3 MG/0.3 IJ
[2024-10-19] MEDS ORDERED: FAMOTIDINE 50 ML IV ONE (04:05)
[2024-10-19] MEDS ORDERED: diphenhydrAMINE hydrochloride 50 MG/ML VIAL IV ONE (04:05)
[2024-10-19] MEDS ORDERED: Dexamethasone Sodium Phospha 20 MG/5 ML VIAL IV ONE (04:05)
[2024-10-19] MEDS ORDERED: Midazolam Hydrochloride 2 MG/2 ML VIAL IV ONE (04:40)
[2024-10-19] MEDS ORDERED: EPINEPHrine Hydrochloride 1 MG/ML AMP ONE (04:41)
[2024-10-19 05:04] VITALS: BP 105/64
== END 2024-10-19 06:19 | disposition home or self-care (01) ==
LOC: ED 03:59
DX: T78.2XXA Anaphylactic shock, unspecified, initial encounter (principal); D64.9 Anemia, unspecified; F17.200 Nicotine dependence, unspecified, uncomplicated; Z88.8 Allergy status to other drugs, medicaments and biological substances; Z98.890 Other specified postprocedural states

== ENCOUNTER → 2024-12-16 | Outpatient (CLI) | payer OTHER ==
[2024-12-16 09:08] LABS: EOS # 0.1 10*3/uL (0.0-0.4); EOS % 1.2 % (1.0-4.0); HEMATOCRIT 36.2 % (37.0-47.0); MEAN CELL VOLUME 89.4 fl (81.0-99.0); MEAN CORPUSCULAR HGB 29.1 pg (27.0-31.0); MEAN CORPUSCULAR HGB CONC 32.6 g/dl (33.0-37.0); MEAN PLATELET VOLUME 9.7 fl (9.6-12.3); MONO # 0.5 10*3/uL (0.1-1.0); MONO % 11.7 % (3.0-9.0); NEUT # 2.8 10*3/uL (2.3-7.9); NEUT % 66.2 % (47.0-73.0); PLATELET COUNT AUTOMATED 333 10*3/uL (130-400); RED BLOOD COUNT 4.05 10*6/uL (4.10-5.10); WHITE BLOOD COUNT 4.2 10*3/uL (4.8-10.8)
[2024-12-16 09:39] LABS: ALKALINE PHOSPHATASE 55 U/L (46-116); CHLORIDE 103 mmol/L (98-107); POTASSIUM 3.5 mmol/L (3.4-5.1); SGPT/ALT 19 U/L (5-49); TOTAL PROTEIN 6.6 gm/dL (6.0-8.0)
[2024-12-16 10:26] LABS: BUN < 5 mg/dl (9-23)
== END | disposition home or self-care (01) ==
LOC: LAB 08:42
PROVIDERS: ATTEND Nurse Practitioner Family
DX: E55.9 Vitamin D deficiency, unspecified (principal); R53.82 Chronic fatigue, unspecified; G35 Multiple sclerosis; Z79.60 Long term (current) use of unspecified immunomodulators and immunosuppressants

== ENCOUNTER 2025-02-18 13:20 | Emergency (ER) | payer OTHER ==
[~2025-02-18] VITALS: Ht 165.1 cm; Wt 70.8 kg
[2025-02-18 13:34] VITALS: BP 122/84
== END 2025-02-18 14:32 | disposition home or self-care (01) ==
LOC: ED 13:20
DX: M79.662 Pain in left lower leg (principal); Z79.899 Other long term (current) drug therapy; Z88.6 Allergy status to analgesic agent; Z88.8 Allergy status to other drugs, medicaments and biological substances; Z98.890 Other specified postprocedural states

== ENCOUNTER → 2025-03-15 | Outpatient (CLI) | payer OTHER | END | disposition home or self-care (01) | LOC: RESCLI 02:32 | PROVIDERS: ATTEND Internal Medicine | DX: G35 Multiple sclerosis (principal); Z00.00 Encounter for general adult medical examination without abnormal findings; F90.0 Attention-deficit hyperactivity disorder, predominantly inattentive type; F90.9 Attention-deficit hyperactivity disorder, unspecified type; N76.0 Acute vaginitis; E55.9 Vitamin D deficiency, unspecified; R52 Pain, unspecified; D50.9 Iron deficiency anemia, unspecified ==

== ENCOUNTER → 2025-04-05 | Outpatient (CLI) | payer OTHER ==
[2025-04-05 09:10] LABS: BASO # 0.1 10*3/uL (0.0-0.1); BASO % 0.9 % (0.0-1.0); EOS # 0.1 10*3/uL (0.0-0.4); EOS % 1.5 % (1.0-4.0); MEAN CELL VOLUME 90.3 fl (81.0-99.0); MEAN CORPUSCULAR HGB 29.2 pg (27.0-31.0); MEAN PLATELET VOLUME 9.8 fl (9.6-12.3); MONO # 0.7 10*3/uL (0.1-1.0); MONO % 10.1 % (3.0-9.0); NEUT # 4.9 10*3/uL (2.3-7.9); NEUT % 71.5 % (47.0-73.0); NUCLEATED RED BLOOD CELL 0.0 % (0.0-0.0); NUCLEATED RED BLOOD CELL 0.0 10*3/uL (0.0-0.0); PLATELET COUNT AUTOMATED 393 10*3/uL (130-400); RED CELL DISTRI WIDTH 14.8 % (0-14.5)
== END | disposition home or self-care (01) ==
LOC: LAB 08:43
PROVIDERS: ATTEND Internal Medicine
DX: Z00.00 Encounter for general adult medical examination without abnormal findings (principal)